=== PATIENT | female | born 1995 | race Caucasian/White ===

== ENCOUNTER → 2018-04-22 12:17 | Outpatient (CLI) | payer OTHER, BC, SELFPAY | PROVIDERS: Family Provider Family Medicine; PCP Family Medicine; Referring Provider Family Medicine; Visit Provider Family Medicine | DX: N39.0 Urinary tract infection, site not specified (principal) | CPT/HCPCS: 87086 ==

== ENCOUNTER → 2019-02-10 14:15 | Outpatient (CLI) | payer OTHER, BC, SELFPAY ==
[2018-05-06 10:44] VITALS: BMI 27.1
[2019-02-10 15:50] LABS: Internal QC Validated? YES +Cl - CLEAR BKGD; Pregnancy, Serum, hCG Quali. NEGATIVE Negative
== END ==
PROVIDERS: Family Provider Family Medicine; PCP Family Medicine; Visit Provider Nurse Practitioner Adult Health
DX: N91.2 Amenorrhea, unspecified (principal)
CPT/HCPCS: 36415; 84703

== ENCOUNTER → 2019-02-27 13:27 | Outpatient (CLI) | payer OTHER, BC, SELFPAY ==
[2019-02-25 10:19] VITALS: BMI 27.1
--- NOTE | 2019-02-27 13:29 | US_ITS ---
STUDY: ULTRASOUND OF THE FEMALE PELVIS - COMPLETE REASON FOR EXAM: Female, 23 years old. Bleeding LMP: 12/21/2018 TECHNIQUE: Transabdominal and Transvaginal TECHNICAL QUALITY: Adequate. COMPARISON: None. FINDINGS: The uterus is anteverted and is in a midline position. The uterus measures 7.6 x 3.8 x 5.1 cm. Normal uterine cervix. The endometrium measures 11 mm in thickness, and is hyperechoic. There is no demonstrated endometrial mass. There is no demonstrated myometrial mass. I.U.D. - The patient does not have an I.U.D. The right ovary is visualized. The right ovary measures 3.6 x 3.3 x 2.7 cm. There is a 2 cm right ovarian cyst. There is no visualized right adnexal mass or complex lesion. There is normal arterial and normal venous vascularity. The left ovary is visualized. The left ovary measures 3.4 x 2.4 x 2.3 cm. There is no left ovarian cyst or ovarian mass. There is no visualized left adnexal mass or complex lesion. There is normal arterial and normal venous vascularity. There is trace fluid in the cul-de-sac. Normal bladder contour. Polycystic ovary disease: No. US/Pelvic (Non ) IMPRESSION: 2 cm right ovarian cyst, otherwise negative female pelvis. Electronically Signed: Laurent Robbins MD at 16:19 EDT , Service support ,
--- NOTE | 2019-02-27 13:29 | US_ITS ---
STUDY: ULTRASOUND OF THE FEMALE PELVIS - COMPLETE REASON FOR EXAM: Female, 23 years old. Bleeding LMP: 12/21/2018 TECHNIQUE: Transabdominal and Transvaginal TECHNICAL QUALITY: Adequate. COMPARISON: None. FINDINGS: The uterus is anteverted and is in a midline position. The uterus measures 7.6 x 3.8 x 5.1 cm. Normal uterine cervix. The endometrium measures 11 mm in thickness, and is hyperechoic. There is no demonstrated endometrial mass. There is no demonstrated myometrial mass. I.U.D. - The patient does not have an I.U.D. The right ovary is visualized. The right ovary measures 3.6 x 3.3 x 2.7 cm. There is a 2 cm right ovarian cyst. There is no visualized right adnexal mass or complex lesion. There is normal arterial and normal venous vascularity. The left ovary is visualized. The left ovary measures 3.4 x 2.4 x 2.3 cm. There is no left ovarian cyst or ovarian mass. There is no visualized left adnexal mass or complex lesion. There is normal arterial and normal venous vascularity. There is trace fluid in the cul-de-sac. Normal bladder contour. Polycystic ovary disease: No. US/Transvaginal Non- IMPRESSION: 2 cm right ovarian cyst, otherwise negative female pelvis. Electronically Signed: Laurent Robbins MD at 16:19 EDT , Service support ,
== END ==
PROVIDERS: Family Provider Family Medicine; PCP Family Medicine; Referring Provider Nurse Practitioner Women's Health; Visit Provider Nurse Practitioner Women's Health
DX: N92.6 Irregular menstruation, unspecified (principal)
CPT/HCPCS: 76830; 76856; 93976

== ENCOUNTER → 2019-05-19 12:36 | Outpatient (CLI) | payer OTHER, BC, SELFPAY ==
[2019-05-19 08:13] VITALS: BMI 27.1
[2019-05-21 21:17] LABS: HPV Reflexed? NOT INDICATED
== END ==
PROVIDERS: Family Provider Family Medicine; PCP Family Medicine; Referring Provider Nurse Practitioner Women's Health; Visit Provider Nurse Practitioner Women's Health
DX: Z12.4 Encounter for screening for malignant neoplasm of cervix (principal)
CPT/HCPCS: 88175; G0145

== ENCOUNTER → 2019-06-02 05:52 | Outpatient (CLI) | payer OTHER, BC, SELFPAY ==
[2019-05-19 08:13] VITALS: BMI 27.1
[2019-06-02 07:47] LABS: Estradiol 44.4 pg/mL; Prolactin 31.5 ng/mL; Thyroid Stim Hormone (TSH) 2.37 uIU/mL (0.358-3.74)
== END ==
PROVIDERS: Family Provider Family Medicine; PCP Family Medicine; Referring Provider Nurse Practitioner Women's Health; Visit Provider Nurse Practitioner Women's Health
DX: N92.6 Irregular menstruation, unspecified (principal)
CPT/HCPCS: 36415; 82670; 84146; 84443

== ENCOUNTER → 2019-06-20 07:09 | Outpatient (CLI) | payer OTHER, BC, SELFPAY ==
[2019-05-19 08:13] VITALS: BMI 27.1
[2019-06-20 08:30] LABS: Prolactin 20.6 ng/mL
[2019-06-20 14:01] LABS: Progesterone Level 0.47 ng/mL (See Comment)
== END ==
PROVIDERS: Family Provider Family Medicine; PCP Family Medicine; Referring Provider Nurse Practitioner Women's Health; Visit Provider Nurse Practitioner Women's Health
DX: N92.6 Irregular menstruation, unspecified (principal)
CPT/HCPCS: 36415; 84144; 84146

== ENCOUNTER → 2019-07-29 06:13 | Outpatient (CLI) | payer OTHER, BC, SELFPAY ==
[2019-05-19 08:13] VITALS: BMI 27.1
[2019-07-29 11:01] LABS: Glucose 75GTT - Fasting 90 mg/dL (70-99)
[2019-07-29 11:05] LABS: Glucose 75GTT - 30 minutes 140 mg/dL (100-160)
[2019-07-29 11:15] LABS: AST(SGOT) 14 U/L (15-37); Alanine Aminotransfer ALT/SGPT 28 U/L (13-56); Albumin, Serum 3.7 g/dL (3.2-5.0); Alkaline Phosphatase 65 U/L (45-117); Anion Gap 4 (5-15); BUN 8 mg/dL (7-18); BUN/Creat Ratio 12.1 RATIO (10-20); Bilirubin, Direct 0.11 mg/dL (0.00-0.30); Chloride 107 mmol/L (98-107); Creatinine, Serum 0.66 mg/dL (0.55-1.02); EST Glomerular Filtration Rate 116 mL/min (>60); Est Glom Filt Rate - Afr Amer 141 mL/min (>60); Globulin 4.1 g/dL (2.2-4.2); Glucose 89 mg/dL (74-106); Protein, Total 7.8 g/dL (6.4-8.2); Sodium Level 138 mmol/L (136-145)
[2019-07-29 11:53] LABS: Glucose 75GTT - 60 minutes 132 mg/dL (100-160)
[2019-07-29 13:01] LABS: Insulin 12.7 mU/L (2.6-37.6)
[2019-07-29 13:29] LABS: Glucose 75GTT - 120 minutes 108 mg/dL (70-140)
== END ==
PROVIDERS: Family Provider Family Medicine; PCP Family Medicine; Referring Provider Obstetrics & Gynecology Reproductive Endocrinology; Visit Provider Obstetrics & Gynecology Reproductive Endocrinology
DX: E16.8 Other specified disorders of pancreatic internal secretion (principal)
CPT/HCPCS: 36415; 80048; 80076; 82951; 82952; 83525; 84100

== ENCOUNTER → 2020-11-11 07:25 | Outpatient (CLI) | payer OTHER, BC, SELFPAY ==
[2020-05-20 08:54] VITALS: BMI 32.4
[2020-11-11 08:33] LABS: hCG Titer Quant., Serum 95 mIU/mL (1-3)
== END ==
PROVIDERS: PCP Family Medicine; Referring Provider Obstetrics & Gynecology Reproductive Endocrinology; Visit Provider Obstetrics & Gynecology Reproductive Endocrinology
DX: Z32.00 Encounter for pregnancy test, result unknown (principal)
CPT/HCPCS: 36415; 84702

== ENCOUNTER → 2020-11-15 05:58 | Outpatient (CLI) | payer OTHER, BC, SELFPAY ==
[2020-05-20 08:54] VITALS: BMI 32.4
[2020-11-15 06:46] LABS: hCG Titer Quant., Serum 433 mIU/mL (1-3)
== END ==
PROVIDERS: PCP Family Medicine; Referring Provider Obstetrics & Gynecology Reproductive Endocrinology; Visit Provider Obstetrics & Gynecology Reproductive Endocrinology
DX: Z32.01 Encounter for pregnancy test, result positive (principal)
CPT/HCPCS: 36415; 84702

== ENCOUNTER 2021-07-18 21:43 | Inpatient (IN) | payer BC, SELFPAY ==
[2021-07-18 21:49] VITALS: BMI 33.9
[2021-07-18 21:51] VITALS: BP 136/84; PULSE 77; TEMP 36.4; O2SAT 99
[2021-07-18] MEDS: Lactated Ringers 1,000 ML 50 ML IV (22:00)
[2021-07-18 22:20] LABS: Absolute Lymphocyte Count 1.59 X10^3/uL (0.83-4.51); Absolute Neutrophil Count 5.9 X10^3/uL (2.0-7.7); Basophil# 0.04 X10^3/uL; Basophil% 0.5 % (0-1); Eosinophil# 0.19 X10^3/uL; Eosinophils% 2.2 % (0-5); Hematocrit 34.6 % (37-47); Hemoglobin 11.5 g/dL (12.0-15.0); Lymphocyte # 1.59 X10^3/ul (0.83-4.51); Lymphocyte % 18.6 % (19-41); Mean Corp Hgb Conc 33.2 g/dL (32-36); Mean Corpuscular Hgb 29.2 pg (27.0-32.0); Mean Corpuscular Volume 87.8 fL (81-99); Mean Platelet Vol. 9.5 fl (6.2-12.0); Monocyte% 9.3 % (0-10); NRBC Flagged by Analyzer 0 % (0-5); Neutrophil # 5.89 X10^3/uL (2.7-7.7); Neutrophil % 68.8 % (47-70); Platelet Count 191 K/mm3 (150-450); RBC Distribution Width CV 13.3 % (11.6-14.6); RBC Distribution Width SD 43.1 fl (35.1-43.9); Red Blood Count 3.94 M/mm3 (4.2-5.4); White Blood Count 8.6 K/mm3 (4.4-11.0)
[2021-07-18] MEDS: 0.9% Normal Saline Single 100 ML IV.SOLN. INTRA-UTER (22:22)
--- NOTE | 2021-07-18 22:27 | PCM.HP.OB ---
HPI - General General Date of Admission: 07/18/21 HPI Narrative MARCI PHOENIX, is a 25 F at 39.4 weeks gestation who presents for elective induction of labor. is a result of IVF and has been uncomplicated. Maternal Data Information ANAHI Calculator Estimated Delivery Date Method Current WG Current Estimate 07/21/21 Manual 39w 4d PFSH PFSH Medical History (Updated 07/18/21 @ 22:31 by Antonia Moreno CNM) Exercise induced anaphylaxis PCOS (polycystic ovarian syndrome) Seasonal allergies Home Medications vitamin no.49-iron-FA 6.75 mg iron-200 mcg tablet 1 tab PO DAILY 05/05/20 [History Last Taken 07/18/21 08:00] aspirin [Baby Aspirin] 81 mg PO DAILY 07/18/21 [History Last Taken 07/18/21 08:00] Allergy/AdvReac Type Severity Reaction Status Date / Time No Known Allergies Allergy Verified 07/18/21 21:56 Family History Mother Arthritis Grandfather Cancer Myocardial infarction Surgical History History of elbow surgery History of tonsillectomy and adenoidectomy Social History current occupational status: employed current occupation: [employer] Smoking Status: Never smoker alcohol intake: current alcohol intake frequency: holidays/special occasions only substance use type: does not use seatbelt use: always do you feel safe at home: Yes additional social history: [employer] History 0 Elective abortions Hx Para Spontaneous abortions Hx # Term Pregnancies Ectopic pregnancies Hx # Pregnancies Multiple births # of living children NST FHR Rate Baby A Baseline: 125 Variability:: Moderate Accelerations:: 15 x 15 Decelerations:: None NST Reactive:: Yes FHR Category:: Category I Uterine Activity:: irritability ROS Eyes Eyes: Denies blurry vision, change in vision or spots in vision ENT HEENT: Denies dizziness or headache(s) Cardiovascular Cardiovascular: Denies abdominal pain, chest pain or dyspnea Respiratory/Chest Respiratory/Chest: Denies cough, dyspnea, shortness of breath at rest or shortness of breath with exertion Gastrointestinal Gastrointestinal: Denies abdominal pain, diarrhea or vomiting Genitourinary Genitourinary: Denies change in urinary stream, difficulty urinating or dysuria Musculoskeletal Musculoskeletal: Reports none Integumentary Integumentary: Denies rash Neurologic Neurologic: Denies dizziness, headache(s), memory loss or weakness Psychiatric Psychiatric: Reports none Vital Signs Vital Signs Vital Signs: 07/18/21 21:51 Temperature 97.5 F L Temperature Source Temporal Pulse Rate 77 Blood Pressure 136/84 H BP Systolic 136 BP Diastolic 84 Pulse Ox 99 Weight Weight: 223 lb 5.252 oz Body Mass Index (BMI) 33.9 Physical Exam Const alert, oriented x3 and no apparent distress General Appearance: cooperative Orientation / Consciousness: awake Exam Limitations: no limitations HEENT normocephalic Head and Scalp: normal to inspection Eyes General Eye: normal appearance of both eyes Neck full ROM and no lymphadenopathy Lymph Lymphatic: no lymphadenopathy noted Chest inspection of chest normal Resp normal respiratory effort, normal air movement and clear to auscultation bilaterally Effort and Inspection: able to speak in complete sentences and symmetric chest movement Cardio regular rate and regular rhythm GI normal to inspection, nondistended, normoactive bowel sounds Manual OB Exam: dilated 1, effaced 50 and station -2 Back/Spine normal ROM Extremity full ROM and no calf tenderness Skin no rashes or lesions noted General Skin Exam: no breakdown Neuro oriented x3 and CN's II-XII intact bilaterally Psych mental status grossly normal and thought process normal Labs Labs Labs: Blood Type Pending Antibody Screen Pending Hct 34.6 % (37-47) L Hgb 11.5 g/dL (12.0-15.0) L O+ Rubella- immune HB- neg HC- neg HIV- NR RPR- NR GBS- neg Assessment & Plan (1) resulting from in vitro fertilization: QUALIFIERS: Trimester: unspecified trimester Qualified Code(s): O09.819 - Supervision of resulting from assisted reproductive technology, unspecified trimester (2) Elective induction of labor planned: (3) 39 weeks gestation of : PLAN: Admit to labor and delivery Routine labs Start IV fluids and titrate per orders GBS negative CAT. 1 tracing, NST REACTIVE CE- 1/50/-2 Sethi bulb placed and balloon filled with 30 cc N/S A.R.O.M for clear fluid with placement of sethi bulb Start Cytotec 25 mcg PO every 4 hours until sethi bulb out Dr. Park notified of admission and is collaborating physician
[2021-07-18 22:51] VITALS: BP 131/76; PULSE 83; TEMP 36.2; O2SAT 97
[2021-07-19] VITALS (55 sets, daily range): BP systolic 96–138; BP diastolic 43–88; PULSE 60–159; RESP 18; TEMP 36.1–37.3; O2SAT 95–100
[2021-07-19] MEDS: miSOPROStol 25 MCG TABLET PO (00:29)
[2021-07-19] MEDS: Oxytocin 30 units/NS 500 ml 30 UNITS/500 ML IV.SOLN IV (04:55)
--- NOTE | 2021-07-19 08:23 | PN.OBGYN_ITS ---
Subjective Subjective Feeling some mild ctxs Objective Data Objective Data Vital Signs: Vital Signs Temp Pulse BP Pulse Ox 98.5 F 70 129/80 H 99 07/19/21 07:19 07/19/21 08:21 07/19/21 08:20 07/19/21 08:21 Weight: 223 lb 5.252 oz Body Mass Index (BMI) 33.9 Intake & Output: Intake and Output for Last 24 Hours 07/17/21 07/18/21 07/19/21 23:59 23:59 23:59 Intake Total 14. / . Balance 14 / Lab / Micro Data Result Diagrams: 07/18/21 22:00 Labs: Laboratory Results - last 24 hr 07/18/21 22:00: WBC 8.6, RBC 3.94 L, Hgb 11.5 L, Hct 34.6 L, MCV 87.8, MCH 29.2, MCHC 33.2, RDW Std Deviation 43.1, RDW Coeff of Elodia 13.3, Plt Count 191, MPV 9.5, Immature Gran % (Auto) 0.600, Neut % (Auto) 68.8, Lymph % (Auto) 18.6 L, [place] % (Auto) 9.3, Eos % (Auto) 2.2, Baso % (Auto) 0.5, Absolute Neuts (auto) 5 .9, Absolute Lymphs (auto) 1.59, Nucleated RBC % 0 07/18/21 22:00: Blood Type O POSITIVE, Antibody Screen NEGATIVE Micro: Microbiology 07/18/21 22:30 Nasal Secretion SARS-CoV-2 Antigen (Rapid) - Final Physical Exam Narrative: /-2 per RN NST FHR Rate Baby A Baseline: 145 Variability:: Moderate Accelerations:: 15 x 15 Decelerations:: Variable Uterine Activity:: Q 3-5 minutes Assessment & Plan (1) resulting from in vitro fertilization: QUALIFIERS: Trimester: third trimester Qualified Code(s): O09.813 - Supervision of resulting from assisted reproductive technology, third trimester COMMENT: 39&5 PLAN: Continue induction of labor for IVF RN placed IUPC to assess for adequacy of labor Discussed epidural placement Routine care
[2021-07-19] MEDS: 0.9% Saline Lock 10 ML Syringe IV ×2 (08:46→20:08)
[2021-07-19] MEDS: Lactated Ringers 500 ML 999 ML IV (12:56)
[2021-07-19] MEDS: fentaNYL-bupivacaine (epidural) 100 ML BAG EPIDURAL (14:08)
[2021-07-19] MEDS: Lactated Ringers 1,000 ML 200 ML IV (15:02)
[2021-07-19] MEDS: Sodium Citrate/Citric Acid 30 ML UDC PO (17:40)
--- NOTE | 2021-07-19 18:04 | EX.PCM.OBRPT ---
Maternal Data Information ANAHI Calculator Estimated Delivery Date Method Current WG Current Estimate 07/21/21 Manual 39w 5d Details Operative Information Date of Procedure: 07/19/21 Pre-Operative Diagnosis: (1) Failed induction (2) Suspected LGA fetus (3) IVF Post-Operative Diagnosis: Same Indications for : Failed Induction Indications Narrative: Patient was admitted for induction of labor. Her cervix made no significant change once the sehti bulb came out despite more than 12 hours of pitocin and 5-6 hours of adequate ctxs. head was not well engaged & cervix was swelling. Fetus was suspected LGA. Patient was counseled on R/B/A and elected to proceed with a primary . The patient was taken to the operating room where epidural anesthesia was dosed & found to be adequate. She was prepped and draped in the dorsal supine position with a leftward tilt. A Pfannenstiel skin incision was made approximately 2 cm above the symphysis pubis. Patient had some pain with this so 10ml 1% lidocaine injected along incision line. Incision was then carried through to the underlying fascia with the scalpel. The fascia was incised incised in the midline and extended laterally with the Bolaños scissors. The rectus muscles were in the midline and the peritoneum was entered carefully and bluntly. The peritoneal incision was stretched and the bladder blade was inserted. Vesicouterine peritoneum was tented up, incised & then bladder flap created gently. The uterine incision was made in a low transverse fashion with the scalpel and extended superiorly and inferiorly with blunt dissection. The 's head was brought to the incision in the flexed position and delivered without difficulty. The head was gently guided to allow delivery of the anterior and posterior shoulders. The body then delivered with fundal pressure in the standard fashion. The 3VC cord was clamped and cut. The infant was handed off to the waiting frozen foods manager. The placenta was delivered with fundal massage and gentle traction in the standard fashion. The uterus was exteriorized and cleared of clots and debris. The uterine incision was closed with #1 Vicryl suture in a running locked fashion. Monocryl suture was used in an imbricating fashion. 1 additional figure of eight suture placed on the right side of the uterine incision. The incision was then examined and was found to be hemostatic. The uterus was returned to the abdominal cavity. After irrigating Antionette was placed over the uterine incision & bladder flap as some areas were denuded (but hemostatic). The peritoneum was closed with vicryl suture in running fashion The rectus muscle was examined and any bleeding was Bovie cauterized. The fascia was closed with PDS suture in a running standard fashion. The subcutaneous tissue was examined. 1 figure our eight suture placed on the right side of the incision and any other bleeding was Bovie cauterized. Antionette was then placed as the subcutaneous tissue was denuded in some areas but hemostatic. The subcutaneous tissue was reapproximated with interrupted sutures. The skin was closed in a subcuticular fashion by the PREMIX CONCRETE BATCHER while I was present in the labor & delivery unit. The remainder of the procedure was performed by me with assistance. All sponge, lap, and needle counts were correct. The patient was taken to her room for recovery in a stable condition. Classification: ANGELA Procedure Type: low transverse operator and truck driver #1: Preethi Patterson Type of Anesthesia: Epidural and Local with 1% Lidocaine Antibiotic Given: Ancef 2 grams IV x1 and Zithromax 500 mg/5 mL X1 Drain: Sethi to straight drain Estimated Blood Loss: 900ml Fluids Replaced: 1500ml Procedure Start Time: 18:18 Procedure Stop Time: 19:30 Findings Description of Procedure: Normal maternal uterus and adnexa Presentation: Positive for Vertex Amniotic Membrane Rupture Type: Artificial Amniotic Fluid Description: Clear Placental Delivery Description: Manual Removal Placenta Disposition: [facility] Cord Vessel Description: 3 Vessels Cord Entanglement: Around neck x 1, loose Nuchal Cord Compression: Without compression A Gender: Male (weight = 9-8) (1 minute): 8 (5 minute): 9 Delayed Cord Clamping: No Complications Complications: None
[2021-07-19] MEDS: Cefazolin 2 GM in 0.9% Normal Saline 100 ML IV (18:20)
[2021-07-19] MEDS: Ketorolac 30 MG/ML Syringe IV (20:08)
[2021-07-19] MEDS: Oxytocin 30 units/NS 500 ml 30 UNITS/500 ML IV.SOLN 167 UNITS IV (20:09)
[2021-07-19] MEDS: Acetaminophen 500 MG Tablet 1000 MG PO (20:12)
[2021-07-19] MEDS: Lactated Ringers 1,000 ML 100 ML IV (23:07)
[2021-07-20] VITALS (8 sets, daily range): BP systolic 100–127; BP diastolic 52–74; PULSE 88–108; RESP 16–18; TEMP 36.3–37.3; O2SAT 95–98
[2021-07-20] MEDS: Acetaminophen 500 MG Tablet 1000 MG PO ×4 (01:37→20:57)
[2021-07-20] MEDS: Ketorolac 30 MG/ML Syringe IV ×3 (01:37→14:14)
[2021-07-20] MEDS: 0.9% Saline Lock 10 ML Syringe IV ×4 (01:37→14:15)
[2021-07-20 06:26] LABS: Hemoglobin 8.3 g/dL (12.0-15.0); Mean Corp Hgb Conc 33.2 g/dL (32-36); Mean Corpuscular Hgb 29.5 pg (27.0-32.0); Mean Platelet Vol. 9.6 fl (6.2-12.0); Platelet Count 152 K/mm3 (150-450); RBC Distribution Width CV 13.9 % (11.6-14.6); RBC Distribution Width SD 45.1 fl (35.1-43.9); Red Blood Count 2.81 M/mm3 (4.2-5.4); White Blood Count 11.5 K/mm3 (4.4-11.0)
--- NOTE | 2021-07-20 08:51 | PCM.PN.OB ---
Subjective Subjective Doing well per patient and nursing staff. Ambulating and taking PO without difficulty. Cole D/Cd Voiding and passing flatus. Pain controlled. , services for assistance. Denies headache, visual changes, chest pain, shortness of breath, leg pain or increased bleeding. Lochia normal. Objective Data Objective Data Vital Signs: Vital Signs Temp Pulse Resp BP Pulse Ox 97.3 F L 95 18 105/65 98 07/20/21 03:35 07/20/21 05:40 07/20/21 05:40 07/20/21 03:35 07/20/21 05:40 Oxygen Delivery Method Room Air Weight: 223 lb 5.252 oz Body Mass Index (BMI) 33.9 Intake & Output: Intake and Output for Last 24 Hours 07/18/21 07/19/21 07/20/21 23:59 23:59 23:59 Intake Total 5967.67 / 5967.67 1188.33 / 1188.33 Output Total 1800 / 1800 600 / 600 Balance 4167.67 / 4167.67 588.33 / 588.33 Lab / Micro Data Result Diagrams: 07/20/21 05:53 Labs: Laboratory Results - last 24 hr 07/20/21 05:53: WBC 11.5 H, RBC 2.81 L, Hgb 8.3 L, Hct 25.0 L, MCV 89.0, MCH 29.5, MCHC 33.2, RDW Std Deviation 45.1 H, RDW Coeff of Elodia 13.9, Plt Count 152, MPV 9.6 Micro: Microbiology 07/18/21 22:30 Nasal Secretion SARS-CoV-2 Antigen (Rapid) - Final ROS Constitutional Constitutional: Reports systems reviewed and no addt'l complaints, except as documented; Denies headache(s) Eyes Eyes: Denies acute decrease in peripheral vision, blurry vision or change in vision ENT HEENT: Reports systems reviewed and no addt'l complaints, except as documented Cardiovascular Cardiovascular: Denies chest pain or dizziness Respiratory/Chest Respiratory/Chest: Denies cough, dyspnea, dyspnea on exertion, shortness of breath at rest or shortness of breath with exertion Gastrointestinal Gastrointestinal: Denies abdominal pain, diarrhea, nausea or vomiting Genitourinary Genitourinary: Denies abdominal discomfort Musculoskeletal Musculoskeletal: Denies limited range of motion Integumentary Integumentary: Reports systems reviewed and no addt'l complaints, except as documented Neurologic Neurologic: Reports systems reviewed and no addt'l complaints, except as documented Psychiatric Psychiatric: Reports systems reviewed and no addt'l complaints, except as documented Endocrine Endocrinology: Reports systems reviewed and no addt'l complaints, except as documented Hematologic/Lymphatic Hematologic/Lymphatic: Reports systems reviewed and no addt'l complaints, except as documented Allergic/Immunologic Allergic/Immunologic: Reports systems reviewed and no addt'l complaints, except as documented Physical Exam Const alert and oriented x3 General Appearance: cooperative Orientation / Consciousness: awake, oriented to person, oriented to place and oriented to time Exam Limitations: no limitations HEENT normocephalic Head and Scalp: normal to inspection, normocephalic and atraumatic Face and Sinus: normal facial exam Eyes General Eye: normal appearance of both eyes Neck full ROM Chest Chest: symmetrical chest wall rise Resp normal respiratory effort and normal air movement Auscultation: clear to auscultation bilaterally Cardio regular rate, regular rhythm, S1 normal heart sound, S2 normal heart sound, no murmurs, no rub, no gallops and no clicks GI normal to inspection, nondistended, normoactive bowel sounds and non-tender GI Narrative: fundus firm 2 below U. Dressing dry and intact appearance of the vagina normal Bladder / Kidney Exam: no CVA tenderness Back/Spine normal ROM Extremity normal to inspection and full ROM Skin no rashes or lesions noted Neuro oriented x3, CN's II-XII intact bilaterally and moves all extremities Sensorium / Orientation: awake, alert and oriented to person Motor Exam: clonus absent Deep Tendon Reflexes: Rt Patellar (L4): 2+ and Lt Patellar (L4): 2+ Assessment & Plan (1) Delivery by section: PLAN: 1) Routine Postoperative care 2) Pain management 3) acute blood loss anemia, will start iorn 4) Ambulation 5) VSS stable 6) services for difficulty with latch 7) Planning D/C home tomorrow
[2021-07-20] MEDS: Enoxaparin 40 MG/0.4 ML Syringe SC (09:55)
[2021-07-20] MEDS: Senna/Docusate Sodium 1 Tablet PO (09:55)
[2021-07-20] MEDS: Ferrous Sulfate 325 MG Tablet PO (12:35)
--- NOTE | 2021-07-20 14:30 | NURSING ---
REPORT RECEIVED FROM Bradley COLIN RN. THIS RN WILL ASSUME CARE AT THIS TIME.
[2021-07-20] MEDS: Ibuprofen 600 MG Tablet PO (20:58)
[2021-07-21] MEDS: Ibuprofen 600 MG Tablet PO ×2 (02:42→08:24)
[2021-07-21] MEDS: Acetaminophen 500 MG Tablet 1000 MG PO ×2 (02:42→10:49)
[2021-07-21 02:44] VITALS: BP 106/66; PULSE 89; RESP 16; TEMP 36.5; O2SAT 97
--- NOTE | 2021-07-21 08:18 | PCM.PN.OB ---
Subjective Subjective Patient seen at bedside, doing well. Patient reports good pain control. Mild lochia. Breast-feeding that difficulty. Tolerating regular diet. Ambulating without difficulty. Denies any chest pain, shortness of breath or dizziness with ambulating. Patient ready for DC home today. Objective Data Objective Data Vital Signs: Vital Signs Temp Pulse Resp BP Pulse Ox 97.7 F L 89 16 106/66 97 07/21/21 02:44 07/21/21 02:44 07/21/21 02:44 07/21/21 02:44 07/21/21 02:44 Oxygen Delivery Method Room Air Weight: 101.3 kg Body Mass Index (BMI) 33.9 Intake & Output: Intake and Output for Last 24 Hours 07/19/21 07/20/21 07/21/21 23:59 23:59 23:59 Intake Total 5967.67 / 5967.67 1188.33 / 1188.33 Output Total 1800 / 1800 1500 / 1500 Balance 4167.67 / 4167.67 -311.67 / -311.67 Lab / Micro Data Result Diagrams: 07/20/21 05:53 Micro: Microbiology 07/18/21 22:30 Nasal Secretion SARS-CoV-2 Antigen (Rapid) - Final Physical Exam Narrative Dressing dry and intact Const alert and oriented x3 General Appearance: cooperative HEENT normocephalic Neck General: normal visual inspection GI soft to palpation and non-distended GI Narrative: Fundus firm Extremity normal to inspection and no calf tenderness Skin no rashes or lesions noted Neuro oriented x3 and CN's II-XII intact bilaterally Psych mental status grossly normal Assessment & Plan (1) Delivery by section: PLAN: POD# 2 , Doing well Routine care pain mgmt monitor VS ambulation dc home today
--- NOTE | 2021-07-21 08:29 | PCM.DC ---
Discharge Instructions Diet Discharge Diet: No restrictions Activity May resume sexual activity in: 6-8 weeks Lifting Restrictions: 25 Dressing / Incision Call your doctor if your incision/area has: Continuous Slow Oozing, Sudden Increased Bleeding, Increased Pain/ Swelling, Increased Redness, Foul Smelling Discharge and Swelling at the incision site Call your doctor if you observe: Fever of 101 or Higher, Inability to urinate, Using more than 1 pad per hour and Uncontrolled pain Additional Dressing/Incision Instructions:: remove dressing at 7 days post op- if it becomes saturated prior to that time you may remove it. Let soap and water run over incision sites and dab dry. keep incision clean and dry. Follow Up Care Please Follow Up With: Monalisa Boateng MD When: 1-2 weeks post of incision check and again at 6 weeks post . [phone] Test Results: Test results from this visit will be discussed in further detail at your follow-up appointment, if applicable. Discharge Plan Admission Admit Date/Time: 07/18/21 21:43 Attending Provider: Tor Chávez Primary Care Provider: Tamra Salcedo Discharge Orders/Prescriptions Prescriptions: New acetaminophen 500 mg Tablet 1,000 mg PO Q6H Qty: 0 RF: 0 ferrous sulfate [FeroSul] 325 mg (65 mg iron) Tablet 325 mg PO DAILY@1200 Qty: 0 RF: 0 ibuprofen 600 mg Tablet 600 mg PO Q6H Qty: 0 RF: 0 simethicone [Mi-Acid Gas Relief(simethicon)] 80 mg Tablet,Chewable 80 mg PO PCHS PRN (Reason: Indigestion/stomach pain) Qty: 0 RF: 0 Continued Mini 6.75 mg iron- 200 mcg tablet 1 tab PO DAILY RF: 0 Discontinued aspirin [Baby Aspirin] 81 mg Tablet,Chewable 81 mg PO DAILY RF: 0 Referrals / Follow Up: Tamra Salcedo MD [Primary Care Provider] - Disposition Disposition (needs filled in before D/C Order can be placed): Home, Self Care
--- NOTE | 2021-07-21 08:31 | PCM.DC.BLA ---
Discharge Summary Date of Admission: 07/18/21 Date of Discharge: 07/21/21 Summary: Patient was admitted to [facility] 07/18/2021 for an elective induction of labor at 39.4 weeks gestation. Patient ultimately had a failed induction and underwent a low transverse section performed by Dr. Tor Chávez. Patient had an uncomplicated postoperative course. Had acute blood loss anemia without hemorrhage. Started on iron supplementation. Discharged home in stable condition on POD#2 Meaningful Use Info Meaningful Use Diagnoses (Choose all that apply): None applicable Discharge Plan Admission Admit Date/Time: 07/18/21 21:43 Attending Provider: Tor Chávez Primary Care Provider: Tamra Salcedo Discharge Orders/Prescriptions Prescriptions: New acetaminophen 500 mg Tablet 1,000 mg PO Q6H Qty: 0 RF: 0 ferrous sulfate [FeroSul] 325 mg (65 mg iron) Tablet 325 mg PO DAILY@1200 Qty: 0 RF: 0 ibuprofen 600 mg Tablet 600 mg PO Q6H Qty: 0 RF: 0 simethicone [Mi-Acid Gas Relief(simethicon)] 80 mg Tablet,Chewable 80 mg PO PCHS PRN (Reason: Indigestion/stomach pain) Qty: 0 RF: 0 Continued Mini 6.75 mg iron- 200 mcg tablet 1 tab PO DAILY RF: 0 Discontinued aspirin [Baby Aspirin] 81 mg Tablet,Chewable 81 mg PO DAILY RF: 0 Referrals / Follow Up: Tamra Salcedo MD [Primary Care Provider] - Disposition Disposition (needs filled in before D/C Order can be placed): Home, Self Care
[2021-07-21 08:35] VITALS: BP 113/68; PULSE 87; RESP 18; TEMP 36.2; O2SAT 98
[2021-07-21] MEDS: Enoxaparin 40 MG/0.4 ML Syringe SC (10:48)
[2021-07-21] MEDS: Senna/Docusate Sodium 1 Tablet PO (10:49)
--- NOTE | 2021-07-26 17:07 | NURSING ---
Follow up phone call done, patient denies needs, has taken baby to ped and feels everything is going well. Reminded of support available and mother reports being very satisfied with her care.
== END 2021-07-21 11:55 | disposition home or self-care (01) | DRG 787 ==
PROVIDERS: Advanced Practice Midwife; Admitting Provider Obstetrics & Gynecology; PCP Family Medicine; Referring Provider Pediatrics; Visit Provider Obstetrics & Gynecology
DX: O61.0 Failed medical induction of labor (principal); D62 Acute posthemorrhagic anemia; O36.63X0 Maternal care for excessive fetal growth, third trimester, not applicable or unspecified; O90.81 Anemia of the puerperium; O69.81X0 Labor and delivery complicated by cord around neck, without compression, not applicable or unspecified; Z3A.39 39 weeks gestation of pregnancy; Z37.0 Single live birth; Z79.82 Long term (current) use of aspirin
CPT/HCPCS: 59025; 59050; 85025; 85027; 86850; 86900; 86901; 87426; 99218; J7120; A4216; G0378; J2405

== ENCOUNTER → 2022-11-02 | Outpatient (CLI) | payer BC, SELFPAY ==
[2022-11-02 09:58] LABS: hCG Titer Quant., Serum < 1 mIU/mL (1-3)
== END | disposition home or self-care (01) ==
PROVIDERS: PCP Family Medicine; Visit Provider Obstetrics & Gynecology Reproductive Endocrinology
DX: Z32.00 Encounter for pregnancy test, result unknown (principal)
CPT/HCPCS: 36415; 84702

== ENCOUNTER → 2022-11-17 | Outpatient (CLI) | payer BC, SELFPAY ==
[2022-11-17 07:13] LABS: Anion Gap 3 (5-15); BUN 12 mg/dL (7-18); BUN/Creat Ratio 18.4 RATIO (10-20); Calcium,Total 8.4 mg/dL (8.5-10.1); Chloride 108 mmol/L (98-107); Cholesterol 192 mg/dL (200); Creatinine, Serum 0.65 mg/dL (0.55-1.02); EST Glomerular Filtration Rate 115 mL/min (>60); Est Glom Filt Rate - Afr Amer 139 mL/min (>60); Glucose 101 mg/dL (74-106); High Density Lipoprotein 58 mg/dL; Sodium Level 137 mmol/L (136-145); Triglycerides 67 mg/dL; Very Low Density Lipoprotein 13 mg/dL (5-40)
== END | disposition home or self-care (01) ==
LOC: LAB 05:58
PROVIDERS: PCP Family Medicine; Referring Provider Nurse Practitioner Family; Visit Provider Nurse Practitioner Family
DX: Z13.1 Encounter for screening for diabetes mellitus (principal); Z13.220 Encounter for screening for lipoid disorders
CPT/HCPCS: 36415; 80048; 80061

== ENCOUNTER 2024-06-27 08:57 | Inpatient (IN) | payer BC, SELFPAY ==
[2024-06-27] VITALS (16 sets, daily range): BP systolic 83–131; BP diastolic 58–93; PULSE 66–93; RESP 16–18; TEMP 36.2–37.3; O2SAT 98–100; BMI 36.8
[2024-06-27] MEDS: Lactated Ringers 1,000 ML 999 ML IV (09:44)
[2024-06-27 09:50] LABS: Absolute Lymphocyte Count 1.28 X10^3/uL (0.83-4.51); Absolute Neutrophil Count 5.3 X10^3/uL (2.0-7.7); Basophil# 0.02 X10^3/uL; Basophil% 0.3 % (0-1); Eosinophil# 0.13 X10^3/uL; Eosinophils% 1.8 % (0-5); Hemoglobin 11.8 g/dL (12.0-15.0); Lymphocyte # 1.28 X10^3/ul (0.83-4.51); Lymphocyte % 17.3 % (19-41); Mean Corp Hgb Conc 34.7 g/dL (32-36); Mean Corpuscular Hgb 30.7 pg (27.0-32.0); Mean Corpuscular Volume 88.5 fL (81-99); Mean Platelet Vol. 9.3 fl (6.2-12.0); Monocyte% 8.1 % (0-10); NRBC Flagged by Analyzer 0 % (0-5); Neutrophil % 71.8 % (47-70); Platelet Count 167 K/mm3 (150-450); RBC Distribution Width CV 13.9 % (11.6-14.6); RBC Distribution Width SD 44.7 fl (35.1-43.9); Red Blood Count 3.84 M/mm3 (4.2-5.4); White Blood Count 7.4 K/mm3 (4.4-11.0)
[2024-06-27 10:24] LABS: Syphilis Antibodies Non-reactive
[2024-06-27] MEDS: Lactated Ringers 1,000 ML 150 ML IV ×2 (10:30→17:27)
[2024-06-27] MEDS: Acetaminophen 500 MG Tablet 1000 MG PO ×3 (10:33→20:29)
[2024-06-27] MEDS: Sodium Citrate/Citric Acid 30 ML UDC PO (11:21)
--- NOTE | 2024-06-27 11:27 | PCM.HP.OB ---
HPI - General General Date of Admission: 06/27/24 Date of Service: 06/27/24 HPI Narrative MARCI PHOENIX, is a 28 F who presents for repeat . Maternal Data Information Final ANAHI: 07[birth year]24 Gestational age: 39&1 PFSH [facility] Medical History Acute blood loss anemia macrosomia Infertility Anxiety Exercise induced anaphylaxis Seasonal allergies PCOS (polycystic ovarian syndrome) Home Medications ?Medication ?Instructions ?Recorded ?Last Taken ?Type vitamin no.49-iron 1 tab PO DAILY 05/05/20 06/26/24 21:00 History fum-folic acid 6.75 mg iron-200 1 TAB mcg tablet (Mini ) levothyroxine 25 mcg tablet 25 mcg PO DAILY hypothyroid 06/27/24 06/26/24 08:00 History (Synthroid) 25 mcg metformin 500 mg tablet 500 mg PO DAILY PCOS 06/27/24 06/26/24 08:00 History 500 mg Allergy/AdvReac Type Severity Reaction Status Date / Time No Known Allergies Allergy Verified 06/27/24 09:18 Family History Mother Arthritis Grandfather Cancer Myocardial infarction Surgical History History of surgery Previous section History of elbow surgery History of tonsillectomy and adenoidectomy Social History current occupational status: employed current occupation: [employer] Smoking Status: Never smoker alcohol intake: current alcohol intake frequency: holidays/special occasions only substance use type: does not use seatbelt use: always do you feel safe at home: Yes additional social history: [employer] History 1 Elective abortions Hx Para 1 Spontaneous abortions Hx # Term Pregnancies Ectopic pregnancies Hx # Pregnancies Multiple births # of living children Vital Signs Vital Signs Vital Signs: 06/27/24 10:09 Temperature 99.1 F Temperature Source Temporal Pulse Rate 87 Respiratory Rate 16 Blood Pressure 131/90 H Blood Pressure Mean 103 Blood Pressure Source Monitor Blood Pressure Position Supine Blood Pressure Location Right Arm Pulse Ox 98 Oxygen Delivery Method Room Air Weight Weight: 234 lb 12.8 oz Body Mass Index (BMI) 36.8 Labs Labs Labs: Blood Type O POSITIVE Antibody Screen NEGATIVE Hct 34.0 % (37-47) L Hgb 11.8 g/dL (12.0-15.0) L Syphilis Total Ab Non-reactive Rhogam given: No Assessment & Plan (1) resulting from in vitro fertilization: QUALIFIERS: Trimester: third trimester Qualified Code(s): O09.813 - Supervision of resulting from assisted reproductive technology, third trimester COMMENT: @ 39&1 (2) Delivery by section: PLAN: Plan Admit to L&D. Repeat - discussed R/B/A and informed consent signed. Routine care.
[2024-06-27] MEDS: Cefazolin 2 GM in Syringe IV (11:30)
--- NOTE | 2024-06-27 12:30 | OP.PCM_ITS ---
Maternal Data Information Final ANAHI: 07/03/24 Gestational age: 39&1 Operative Report (OB) Cecarean Details Procedure Type: low transverse Date of Procedure: 06/27/24 Procedure Start Time: 11:51 Pre-Operative Diagnosis: Repeat Elective Post-Operative Diagnosis: Same as Pre-operative diagnosis Classification: Scheduled Type of Anesthesia: Spinal Antibiotic Given: Ancef 2 grams IV x1 Drain: Cole to straight drain Estimated Blood Loss: 800ml Fluids Replaced: 950ml Findings Presentation: Vertex Amniotic Membrane Rupture Type: Artificial Amniotic Fluid Description: Clear Placental Delivery Description: Expressed Placenta Disposition: [facility] Cord Vessel Description: 3 Vessels Cord Entanglement: None Delayed Cord Clamping: Yes
--- NOTE | 2024-06-27 12:30 | EX.PCM.OBRPT ---
Maternal Data Information Final ANAHI: 07/03/24 Gestational age: 39&1 Operative Report (OB) Cecarean Details Procedure Type: low transverse Date of Procedure: 06/27/24 Procedure Start Time: 11:51 Procedure Stop Time: 12:45 Pre-Operative Diagnosis: Repeat Elective Post-Operative Diagnosis: Same as Pre-operative diagnosis Classification: Scheduled Type of Anesthesia: Spinal Antibiotic Given: Ancef 2 grams IV x1 Drain: Cole to straight drain Estimated Blood Loss: 800ml Fluids Replaced: 950ml Findings Description of surgery: The patient was taken to the operating room where spinal anesthesia was placed & found to be adequate. She was prepped and draped in the dorsal supine position with a leftward tilt. A Pfannenstiel skin incision was made approximately 2 cm above the symphysis pubis and carried through to the underlying fascia with the scalpel. The fascia was incised incised in the midline and extended laterally with the Bolaños scissors. The rectus muscles were in the midline and the peritoneum was entered carefully and bluntly. The peritoneal incision was stretched and the bladder blade was inserted. Vesicouterine peritoneum was tented up, incised & then bladder flap created gently. The uterine incision was made in a low transverse fashion with the scalpel and extended superiorly and inferiorly with blunt dissection. The infant's head was brought to the incision in the flexed position and delivered without difficulty. The head was gently guided to allow delivery of the anterior and posterior shoulders. The body then delivered with fundal pressure in the standard fashion. The 3VC cord was clamped and cut in slightly delayed fashion. The was handed off to the waiting certified pediatric nurse practitioner. The placenta was delivered with fundal massage and gentle traction in the standard fashion. The uterus was exteriorized and cleared of clots and debris. The uterine incision was closed with #1 Vicryl suture in a running locked fashion. Monocryl suture was used in an imbricating fashion. 3 additional figure of 8 sutures were placed to obtain excelled hemostasis. The incision was examined and was found to be hemostatic. The uterus was returned to the abdominal cavity. After irrigating Antionette was placed over the uterine incision as some areas were denuded (but hemostatic). The rectus muscle was examined and any bleeding was Bovie cauterized. The fascia was closed with PDS suture in a running standard fashion. The subcutaneous tissue was examining and any bleeding was Bovie cauterized. The subcutaneous tissue was reapproximated with interrupted sutures. The skin was closed in a subcuticular fashion by the BEEHIVE KILN SUPERVISOR while I was present in the OR. The remainder of the procedure was performed by me with assistance. Surgical findings: normal maternal uterus and adnexa Presentation: Vertex Amniotic Membrane Rupture Type: Artificial Amniotic Fluid Description: Clear Placental Delivery Description: Expressed Placenta Disposition: [facility] Specimen collected: No Cord Vessel Description: 3 Vessels Cord Entanglement: None Infant A gender: Female (1 minute): 8 (5 minute): 9 Delayed Cord Clamping: Yes Accounting File Clerk pit recorder: Yes Documentation Engineer: Phan Wilkerson Tasks completed by recruitment assistant: Closing Additional ice cream freezer assistant?: No Complications Complications: No
[2024-06-27] MEDS: Oxytocin 15 Units/NS 250ml 15 UNITS/250 ML IV.SOLN 83 UNITS IV (13:10)
[2024-06-27] MEDS: Ketorolac 30 MG/ML Syringe IV ×2 (14:19→20:28)
[2024-06-27] MEDS: Enoxaparin 40 MG/0.4 ML Syringe SC (23:48)
[2024-06-28] MEDS: Acetaminophen 500 MG Tablet 1000 MG PO ×2 (02:31→13:16)
[2024-06-28] MEDS: Ketorolac 30 MG/ML Syringe IV (02:31)
[2024-06-28 03:21] VITALS: BP 115/79; PULSE 78; RESP 16; TEMP 36.6; O2SAT 97
[2024-06-28 05:41] LABS: Hemoglobin 10.7 g/dL (12.0-15.0); Mean Corp Hgb Conc 33.4 g/dL (32-36); Mean Corpuscular Hgb 30.7 pg (27.0-32.0); Mean Corpuscular Volume 91.7 fL (81-99); Mean Platelet Vol. 8.8 fl (6.2-12.0); Platelet Count 172 K/mm3 (150-450); RBC Distribution Width CV 14.4 % (11.6-14.6); RBC Distribution Width SD 48.1 fl (35.1-43.9); Red Blood Count 3.49 M/mm3 (4.2-5.4); White Blood Count 8.8 K/mm3 (4.4-11.0)
[2024-06-28 07:50] VITALS: BP 134/87; PULSE 76; RESP 16; TEMP 36.6; O2SAT 98
--- NOTE | 2024-06-28 07:58 | PCM.PN.OB ---
Subjective Subjective Doing well per patient and nursing staff. Ambulating and taking PO without difficulty. Voiding and passing flatus. Pain controlled. , services for assistance. Denies headache, visual changes, chest pain, shortness of breath, leg pain or increased bleeding. Lochia normal. Objective Data Objective Data Vital Signs: Vital Signs Temp Pulse Resp BP Pulse Ox O2 Del Method 97.9 F 78 16 115/79 97 Room Air 06/28/24 03:21 06/28/24 03:21 06/28/24 03:21 06/28/24 03:21 06/28/24 03:21 06/28/24 03:21 Oxygen Delivery Method Room Air Weight: 234 lb 12.8 oz Body Mass Index (BMI) 36.8 Intake & Output: Intake and Output for Last 24 Hours 06/26/24 06/27/24 06/28/24 23:59 23:59 23:59 Intake Total 2732.4 / 2732.4 767.5 / 767.5 Output Total 1600 / 1600 450 / 450 Balance 1132.4 / 1132.4 317.5 / 317.5 Lab / Micro Data 06/28/24 05:30 Labs: Laboratory Results - last 24 hr 06/27/24 09:20: WBC 7.4, RBC 3.84 L, Hgb 11.8 L, Hct 34.0 L, MCV 88.5, MCH 30.7, MCHC 34.7, RDW Std Deviation 44.7 H, RDW Coeff of [place]odia 13.9, Plt Count 167, MPV 9.3, Immature Gran % (Auto) 0.700, Neut % (Auto) 71.8 H, Lymph % (Auto) 17.3 L, [place] % (Auto) 8.1, Eos % (Auto) 1.8, Baso % (Auto) 0.3, Absolute Neuts (auto) 5.3, Absolute Lymphs (auto) 1.28, Nucleated RBC % 0, Syphilis Total Ab Non-reactive, Blood Type O POSITIVE, Antibody Screen NEGATIVE 06/28/24 05:30: WBC 8.8, RBC 3.49 L, Hgb 10.7 L, Hct 32.0 L, MCV 91.7, MCH 30.7, MCHC 33.4, RDW Std Deviation 48.1 H, RDW Coeff of [place]odia 14.4, Plt Count 172, MPV 8.8 ROS Constitutional Constitutional: Reports systems reviewed and no addt'l complaints, except as documented; Denies headache(s) Eyes Eyes: Denies acute decrease in peripheral vision, blurry vision or change in vision ENT HEENT: Reports systems reviewed and no addt'l complaints, except as documented Cardiovascular Cardiovascular: Denies chest pain or dizziness Respiratory/Chest Respiratory/Chest: Denies cough, dyspnea, dyspnea on exertion, shortness of breath at rest or shortness of breath with exertion Gastrointestinal Gastrointestinal: Denies abdominal pain, diarrhea, nausea or vomiting Genitourinary Genitourinary: Denies abdominal discomfort Musculoskeletal Musculoskeletal: Denies limited range of motion Integumentary Integumentary: Reports systems reviewed and no addt'l complaints, except as documented Neurologic Neurologic: Reports systems reviewed and no addt'l complaints, except as documented Psychiatric Psychiatric: Reports systems reviewed and no addt'l complaints, except as documented Endocrine Endocrinology: Reports systems reviewed and no addt'l complaints, except as documented Hematologic/Lymphatic Hematologic/Lymphatic: Reports systems reviewed and no addt'l complaints, except as documented Allergic/Immunologic Allergic/Immunologic: Reports systems reviewed and no addt'l complaints, except as documented Physical Exam Const alert and oriented x3 General Appearance: cooperative Orientation / Consciousness: awake, oriented to person, oriented to place and oriented to time Exam Limitations: no limitations HEENT normocephalic Head and Scalp: normal to inspection, normocephalic and atraumatic Face and Sinus: normal facial exam Eyes General Eye: normal appearance of both eyes Neck full ROM Chest Chest: symmetrical chest wall rise Resp normal respiratory effort and normal air movement Auscultation: clear to auscultation bilaterally Cardio regular rate, regular rhythm, S1 normal heart sound, S2 normal heart sound, no murmurs, no rub, no gallops and no clicks GI normal to inspection, nondistended, normoactive bowel sounds and non-tender GI Narrative: dressing dry and intact appearance of the vagina normal Bladder / Kidney Exam: no CVA tenderness Back/Spine normal ROM Extremity normal to inspection and full ROM Skin no rashes or lesions noted Neuro oriented x3, CN's II-XII intact bilaterally and moves all extremities Sensorium / Orientation: awake, alert and oriented to person Motor Exam: clonus absent Deep Tendon Reflexes: Rt Patellar (L4): 2+ and Lt Patellar (L4): 2+ Assessment & Plan (1) Delivery by section: PLAN: Plan 1) Routine care, POD #1 2) Vitals signs stable 3) Pain controlled 4) , services PRN 5) D/C home 6) Follow up in 1 week and 6 weeks
--- NOTE | 2024-06-28 08:00 | DS.PCM_ITS ---
Providers Date of Admission: 06/27/24 Primary Care Physician: Dr. Tamra Salcedo MD Reason For Visit: REPEAT C SECTION Diagnosis Discharge Diagnosis (1) Delivery by section: Status: Acute Plan 1) Routine care, POD #1 2) Vitals signs stable 3) Pain controlled 4) , services PRN 5) D/C home 6) Follow up in 1 week and 6 weeks Medications at Discharge Home Medications vitamin no.49-iron fum-folic acid 6.75 mg iron-200 mcg tablet (Mini ) 1 tab PO DAILY 05/05/20 levothyroxine 25 mcg tablet (Synthroid) 25 mcg PO DAILY hypothyroid 06/27/24 metformin 500 mg tablet 500 mg PO DAILY PCOS 06/27/24 Hospital Course Summary of Care Provided Minutes Spent on Discharge: 15 Hospital Course: Presented at 39 weeks for repeat section. Postoperative course uncomplicated. Discharge home on postoperative day #1. Weight / BMI Weight Weight: 234 lb 12.8 oz Body Mass Index (BMI) 36.8 ABG / Lab / Microbiology Data 06/28/24 05:30 Laboratory: Laboratory Results - last 24 hr 06/27/24 09:20: WBC 7.4, RBC 3.84 L, Hgb 11.8 L, Hct 34.0 L, MCV 88.5, MCH 30.7, MCHC 34.7, RDW Std Deviation 44.7 H, RDW Coeff of Elodia 13.9, Plt Count 167, MPV 9.3, Immature Gran % (Auto) 0.700, Neut % (Auto) 71.8 H, Lymph % (Auto) 17.3 L, [place] % (Auto) 8.1, Eos % (Auto) 1.8, Baso % (Auto) 0.3, Absolute Neuts (auto) 5.3, Absolute Lymphs (auto) 1.28, Nucleated RBC % 0, Syphilis Total Ab Non- reactive, Blood Type O POSITIVE, Antibody Screen NEGATIVE 06/28/24 05:30: WBC 8.8, RBC 3.49 L, Hgb 10.7 L, Hct 32.0 L, MCV 91.7, MCH 30.7, MCHC 33.4, RDW Std Deviation 48.1 H, RDW Coeff of Elodia 14.4, Plt Count 172, MPV 8.8 D/C Instructions DC O2, CPAP, BIPAP Needs Additional Home O2 Discharge instructions: No DC home with Oxygen: No Meaningful Use Info Meaningful Use Meaningful Use Diagnoses (Choose all that apply): None applicable Ischemic Stroke Statin Dosing Therapy Reference: STATIN DOSE THERAPY REFERENCE: * Patients > 75 years receive moderate or high dose statin therapy. * Patients 75 years or YOUNGER should receive HIGH intensity statin dose unless contraindicated. You will be required to document reason for non-treatment if statin daily dose does not meet guidelines. HIGH DOSE STATIN THERAPY DAILY Atorvastatin > than or = to 40 mg Rosuvastatin > than or = to 20 mg Amlodipine + Atorvastatin > than or = to 2.5/40 mg Ezetimibe + Simvastatin 10/80 mg Simvastatin 80mg Discharge Plan Admission Admit Date/Time: 06/27/24 08:57 Attending Provider: Tor Chávez Primary Care Provider: Tamra Salcedo Discharge Orders/Prescriptions Prescriptions: No Action Mini 6.75 mg iron- 200 mcg tablet 1 tab PO DAILY metformin 500 mg tablet 500 mg PO DAILY levothyroxine [Synthroid] 25 mcg tablet 25 mcg PO DAILY Referrals / Follow Up: Tamra Salcedo MD [Primary Care Provider] -
--- NOTE | 2024-06-28 08:02 | DCINST_ITS ---
Discharge Instructions Diet Discharge Diet: No restrictions DC O2, CPAP, BIPAP needs Additional Home O2 Discharge instructions: No Dressing / Incision May resume sexual activity in: 6 weeks Weight Bearing Status: Full weight bearing Dressing / Incision Call your doctor if your incision/area has: Continuous Slow Oozing, Sudden Increased Bleeding, Increased Pain/ Swelling, Increased Redness, Foul Smelling Discharge and Swelling at the incision site Call your doctor if you observe: Fever of 101 or Higher, Inability to urinate, I nability to have a bowel movement, Using more than 1 pad per hour, Shortness of breath, Dizziness, Fainting spells, Chest pain, Increased palpitations (irregular heartbeat), Calf discomfort and Uncontrolled pain Suture Line Care: Avoid Pulling/Pushing Remove Dressing in: 1 week Cleanse incision/area with: Keep Dressing Clean & Dry Follow Up Care Test Results: Test results from this visit will be discussed in further detail at your follow- up appointment, if applicable. Discharge Plan Admission Admit Date/Time: 06/27/24 08:57 Primary Reason for Your Visit: Repeat section Attending Provider: Tor Chávez Primary Care Provider: Tamra Salcedo Discharge Orders/Prescriptions Prescriptions: New sennosides-docusate sodium [Stimulant Laxative Plus] 8.6-50 mg Tablet 1 - 2 tab PO DAILY Qty: 0 0RF acetaminophen 500 mg Tablet 1,000 mg PO Q6 Qty: 0 0RF ibuprofen 600 mg Tablet 600 mg PO Q6H Qty: 0 0RF Continued Mini 6.75 mg iron- 200 mcg tablet 1 tab PO DAILY metformin 500 mg tablet 500 mg PO DAILY levothyroxine [Synthroid] 25 mcg tablet 25 mcg PO DAILY Referrals / Follow Up: Tamra Salcedo MD [Primary Care Provider] - Disposition Disposition (needs filled in before D/C Order can be placed): Home, Self Care
[2024-06-28] MEDS: Ibuprofen 600 MG Tablet PO (09:22)
[2024-06-28] MEDS: Senna/Docusate Sodium 1 Tablet PO (09:22)
--- NOTE | 2024-06-28 13:00 | CASEMGMT ---
Social Work Assessment Labor and Delivery Unit Patient Address: [address] [place] [address] [place] [id number] Phone number: [phone] Date of Referral: 06/27/2024 Time of Referral: 22:15 Referred By: Tor Chávez Date of Intervention: 06/28/2024 Time of Intervention: 13:00 Reason for Referral: Mental Health; Anxiety History obtained from: Medical records, mother of baby (MOB) and father of baby (FOB).? Household composition: MOB (Jayshree, age 29), FOB, (Henri, age 32), their 2 year old son Lincoln/will be 3 in a few weeks) and daughter Bibiana, born on 06/27/2024. Patient's parent/guardian status: MOB and FOB have been together for 11 years and for 6. ??Both are actively involved and will be providing care for baby. MOB denied any concerns with domestic violence and described a positive and supportive relationship with the FOB. Medical History: ?: 4, Para, now 2.? AARON has had 2 previous SAB?s. AARON received PNC through [facility] beginning at 9 weeks and 4 days. Apgars: 8 and 9. Weight: 8lbs, 10 oz. Customer Logistics Manager: Dr. Govind Simmons. Educational Status: MOB and FOB denied any issues or concerns with reading or writing. AARON earned her Bachelor?s Degree in Nursing and the FOB is a High School graduate. Financial Status: MOB and FOB reported their income is sufficient to meet the needs of their family at this time. AARON is currently employed part-time at [employer] in [place]. FOKain is employed time broker with [employer]. Infant Supplies: MOB and FOB reported they have all the supplies they need for baby at this time including but not limited to: Car seat, bassinet, diapers, breast pump, bottles and clothing. Childcare/Caregiver(s):? MOB reported she and the FOB have a gymnastics coach or instructor to care their children 2 days a week and ?s maternal grandmother (MGM) ?will provide childcare one day a week during the time they are working. Transportation:? MOB and FOB reported they are both licensed drivers and have a reliable vehicle to take baby to and from all medical appointments. No transportation issues identified. Programs/Agencies Involved: MOB and FOB denied any current programs or agencies involved at this time. Children Services/Legal Issues:? Denied. Behavioral Health Issues: ??Mental Health History: AARON has a history of anxiety which MOB reported she has never been on medication for and is managed. FOB denied any MH concerns. ?Substance Use History: Denied.?Family History: ?s paternal grandfather (PGF) reportedly abuses alcohol. ???Drug Screens: None obtained at the time of this admission. ?? Family/Social Stressors: ?MOB and FOB denied any current family or social stressors. Support Systems: Ample.? AARON identified her biggest supports as her and both sides of their families including parents, step-parents and siblings. Depression/Shaken Baby/Safe Sleeping: cattle alley worker provided verbal and written education on PPD, Safe Sleeping and Shaken Baby.? Parents verbalized an understanding. ??? ASSESSMENT:? MOB and FOB provided consent to social work visit. Upon arrival, MOB was sitting upright in the hospital bed nursing and the FOB was sitting nearby.? MOB and FOB were both verbally engaged, cooperative. Pole Setter observed positive interaction between the MOB and FOB.? MOB did most of the talking.? MOB nursed throughout the assessment and appeared to be attached and bonded with . MOB was observed to be gentle with and was attentive to newborns? needs. ?At the end of the assessment, social work job titles requested to speak with the MOB alone which both MOB and FOB were agreeable to. AARON reported feeling safe in her home, denied any previous or current DV, any concerns with drug or alcohol abuse or unmanaged mental health issues with either herself or the FOB. Safe Plan of Care for related to substance use: N/A; not needed. ? PLAN:? Baby to be discharged home when ready.? cattle alley worker also provided written information on depression, depression resources and Help Me Grow as additional resources offered by social work job titles which MOB and FOB accepted. No other services requested or indicated. CHRISTOPHER Nobles, SALES MANAGEMENT INTERN. 06/28/2024
[2024-06-28 14:34] VITALS: BP 129/87; PULSE 72; RESP 16; TEMP 36.6; O2SAT 99
== END 2024-06-28 15:15 | disposition home or self-care (01) | DRG 788 ==
PROVIDERS: Admitting Provider Obstetrics & Gynecology; PCP Family Medicine; Referring Provider Obstetrics & Gynecology; Visit Provider Obstetrics & Gynecology
PROC: 10D00Z1 Extraction of Products of Conception, Low, Open Approach (ICD-10-PCS; CPT 59514; principal; 2024-06-27 11:15)
DX: O34.211 Maternal care for low transverse scar from previous cesarean delivery (principal); Z37.0 Single live birth; Z3A.39 39 weeks gestation of pregnancy; Z79.890 Hormone replacement therapy; Z79.84 Long term (current) use of oral hypoglycemic drugs; Z79.899 Other long term (current) drug therapy
CPT/HCPCS: 59025; 59050; 85025; 85027; 86780; 86850; 86900; 86901; 99221; J7120; G0378; J2405